=== PATIENT | male | born 1930 | race Caucasian/White ===

== ENCOUNTER 2017-09-04 18:09 | Inpatient (IN) | payer MEDICARE, OTHER ==
[~2017-09-04] VITALS: Ht 170.2 cm; Wt 69.0 kg
[2017-09-04 18:16] VITALS: BP 187/88; PULSE 65; RESP 18; TEMP 97.9; O2SAT 98
[2017-09-04] MEDS ORDERED: PROMETHAZINE INJ 25 MG/ML VIAL IM ONE (19:15)
[2017-09-04] MEDS ORDERED: MORPHINE SULFATE 8 MG/ML INJ IM ONE (19:15)
[2017-09-04] MEDS ORDERED: TETANUS/DIPHTHERIA TOXOID ADULT 0.5 ML VIAL IM ONE (19:15)
--- NOTE | 2017-09-04 19:17 | PD ---
HPI Chief Complaint: Fall Time Seen by Provider: 18:53 Travel History International Travel<30 days: No Contact w/Intl Traveler<30days: No Traveled to known affect area: No History of Present Illness HPI The patient is a 86-year-old male who presents to the emergency department after a mechanical fall. The states the patient fell while he was in the tub earlier tonight landing on his right mid back. 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 The patient takes soft liquids via the oropharyngeal route for hydration and nutritional support. The patient states he lost his balance and fell backwards, he is nonverbal secondary to tongue surgery, but is able to write on a pad that he carries with him. He complains of pain located in the mid right thoracic region is worse with movement, palpation, and inspiration. He denies any nausea or vomiting. He does note an abrasion to the right upper extremity but denies any difficulty using the right upper extremity. He cannot recall his last tetanus shot. He denies any loss of consciousness, headache, or neck pain. Symptoms are moderate , exacerbated after falling, and there are no current alleviating factors. [facility] Past Medical History Narrative Medical Oropharyngeal/throat cancer Past Surgical History Narrative Surgical oropharyngeal surgery for cancer, tracheostomy Social History Tobacco Use: Yes (history of) Allergies-Medications (Allergen,Severity, Reaction): Coded Allergies: No Known Allergies (Verified Allergy, Unknown, 09/04/17) Reported Meds & Prescriptions Reported Meds & Active Scripts Active Reported [Bladder Med] 1 Mg PO DAILY Levothyroxine (Levothyroxine Sodium) 50 Mcg Tab 50 Mcg PO DAILY Review of Systems Except as stated in HPI: all other systems reviewed are Neg HENT: No: Headaches, Neck Pain Cardiovascular: No: Chest Pain or Discomfort Respiratory: Positive: Pleuritic Pain, No: Shortness of Breath Gastrointestinal: No: Nausea, Vomiting, Abdominal Pain Musculoskeletal: Positive: Pain Skin: Positive Other (abrasion to the right upper extremity) Physical Exam Narrative GENERAL: Awake, alert, pleasant 86-year-old male who appears his stated age and is in no acute respiratory distress. The patient is wearing a mask and is nonverbal. SKIN: Focused skin assessment warm/dry. HEAD: Atraumatic. Normocephalic. EYES: Pupils equal and round. No scleral icterus. No injection or drainage. ENT: Patient is wearing a mask. NECK: Trachea midline. No JVD. No tenderness of the cervical vertebrae. CARDIOVASCULAR: Regular rate and rhythm. No murmur appreciated. RESPIRATORY: No accessory muscle use. Clear to auscultation. Breath sounds equal bilaterally. GASTROINTESTINAL: Abdomen soft, non-tender, nondistended. Back: No tenderness over the thoracic or lumbar vertebrae. Significant tenderness of the right thoracic posterior rib cage but no crepitus noted. MUSCULOSKELETAL: Abrasion noted over the right upper extremity which is a large skin tear measuring 8 cm x 6 cm. Patient is able fully flex and extend the right elbow as well as supinate and pronate the right forearm. He is able to abduct and extend the right upper extremity. NEUROLOGICAL: Awake and alert. No obvious cranial nerve deficits. Motor grossly within normal limits. Nonverbal. PSYCHIATRIC: Appropriate mood and affect; insight and judgment normal. Data Data Last Documented VS Vital Signs Date Time Temp Pulse Resp B/P (MAP) Pulse Ox O2 Delivery O2 Flow Rate FiO2 09/04/17 20:30 71 18 199/100 (133) 98 Room Air 09/04/17 18:[address] Thorax/ Chest Wo Iv Contras (09/04/17 ) Chest, Single Ap (09/04/17 ) Tetanus/Diphtheria Tox Adult (Tetanus/Di (09/04/17 19:15) Morphine Inj (Morphine Inj) (09/04/17 19:15) Promethazine Inj (Phenergan Inj) (09/04/17 19:15) Wound Care (09/04/17 19:11) Complete Blood Count With Diff (09/04/17 20:44) Basic Metabolic Panel (Bmp) (09/04/17 20:44) Ondansetron Inj (Zofran Inj) (09/04/17 20:45) Sodium Chlorid 0.9% 500 Ml Inj (Ns 500 M (09/04/17 20:45) Morphine Inj (Morphine Inj) (09/04/17 21:15) Labs Laboratory Tests Test 09/04/17 21:05 White Blood Count 10.1 TH/MM3 Red Blood Count 3.85 MIL/MM3 Hemoglobin 12.2 GM/DL Hematocrit 35.7 % Mean Corpuscular Volume 92.8 FL Mean Corpuscular Hemoglobin 31.7 PG Mean Corpuscular Hemoglobin Concent 34.2 % Red Cell Distribution Width 12.6 % Platelet Count 232 TH/MM3 Mean Platelet Volume 7.1 FL Neutrophils (%) (Auto) 88.4 % Lymphocytes (%) (Auto) 2.9 % Monocytes (%) (Auto) 6.0 % Eosinophils (%) (Auto) 1.4 % Basophils (%) (Auto) 1.3 % Neutrophils # (Auto) 9.0 TH/MM3 Lymphocytes # (Auto) 0.3 TH/MM3 Monocytes # (Auto) 0.6 TH/MM3 Eosinophils # (Auto) 0.1 TH/MM3 Basophils # (Auto) 0.1 TH/MM3 CBC Comment DIFF FINAL Differential Comment Blood Urea Nitrogen 26 MG/DL Creatinine 1.50 MG/DL Random Glucose 99 MG/DL Calcium Level 8.4 MG/DL Sodium Level 127 MEQ/L Potassium Level 3.9 MEQ/L Chloride Level 93 MEQ/L Carbon Dioxide Level 25.1 MEQ/L Anion Gap 9 MEQ/L Estimat Glomerular Filtration Rate 44 ML/MIN MDM Medical Decision Making Medical Screen Exam Complete: Yes Emergency Medical Condition: Yes Medical Record Reviewed: Yes Interpretation(s) Last Impressions Chest X-Ray 09/04/17 0000 Signed Impressions: Service Date/Time: Monday, September 04, 2017 19:18 - CONCLUSION: Multiple acute appearing right rib fractures. However, no pneumothorax is visualized. Serafin Urbina MD Chest CT 09/04/17 0000 Signed Impressions: Service Date/Time: Monday, September 04, 2017 20:01 - CONCLUSION: 1. There are right-sided rib fractures involving the seventh through 11th ribs and there is a nondisplaced fracture involving the right 10th and 11th right transverse process. No pneumothorax is visualized. 2. There is trace right pleural effusion with minimal right posterior chest wall soft tissue air. 3. 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 4. 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 Serafin Urbina MD Laboratory Tests Test 09/04/17 21:05 White Blood Count 10.1 TH/MM3 Red Blood Count 3.85 MIL/MM3 Hemoglobin 12.2 GM/DL Hematocrit 35.7 % Mean Corpuscular Volume 92.8 FL Mean Corpuscular Hemoglobin 31.7 PG Mean Corpuscular Hemoglobin Concent 34.2 % Red Cell Distribution Width 12.6 % Platelet Count 232 TH/MM3 Mean Platelet Volume 7.1 FL Neutrophils (%) (Auto) 88.4 % Lymphocytes (%) (Auto) 2.9 % Monocytes (%) (Auto) 6.0 % Eosinophils (%) (Auto) 1.4 % Basophils (%) (Auto) 1.3 % Neutrophils # (Auto) 9.0 TH/MM3 Lymphocytes # (Auto) 0.3 TH/MM3 Monocytes # (Auto) 0.6 TH/MM3 Eosinophils # (Auto) 0.1 TH/MM3 Basophils # (Auto) 0.1 TH/MM3 CBC Comment DIFF FINAL Differential Comment Blood Urea Nitrogen 26 MG/DL Random Glucose 99 MG/DL Calcium Level 8.4 MG/DL Sodium Level 127 MEQ/L Potassium Level 3.9 MEQ/L Chloride Level 93 MEQ/L Carbon Dioxide Level 25.1 MEQ/L Anion Gap 9 MEQ/L Differential Diagnosis Differential diagnosis includes thoracic fracture, rib fracture, pulmonary contusion, hemothorax, pneumothorax, mechanical fall, skin tear. Narrative Course A chest x-ray was obtained. CT of the thorax without contrast was ordered. The patient was administered morphine and Phenergan IM. The patient's tetanus shot was updated. The patient's wound was cleaned and a nonadherent dressing was applied. Chest x-ray reveals posterior right rib fractures. CT of the thorax reveals right sided rib fractures involving the seventh through 11th ribs and nondisplaced fracture involving the right 10th and 11th right transverse process, no pneumothorax is visualized. There is trace right pleural effusion with minimal right posterior chest wall soft air. The patient has multiple rib fractures, will need aggressive pulmonary toilet. The patient an IV established and was redosed with morphine for continuing pain. The on- call trauma surgeon, Dr. Morales, was paged at 9:24 PM for admission. Physician Communication Physician Communication The on-call trauma surgeon, Dr. Morales, was paged for admission. I discussed the patient with Dr. Morales who agrees with admission to the intensive care unit for pulmonary toilet. Diagnosis Primary Impression: Multiple rib fractures involving four or more ribs Additional Impression: Fracture of transverse process of thoracic vertebra Qualified Codes: S22.009A - Unspecified fracture of unspecified thoracic vertebra, initial encounter for closed fracture Admitting Information Admitting Physician Requests: Admit Condition: Stable Abhay Felix MD Sep 04, 2017 19:17
[2017-09-04] MEDS ORDERED: LEVO50TA4 PO (19:50)
[2017-09-04] MEDS ORDERED: BLADDER MED PO (19:50)
[2017-09-04 20:30] VITALS: BP 199/100; PULSE 71; RESP 18; O2SAT 98
--- NOTE | 2017-09-04 20:43 | RADRPT ---
EXAM DATE/TIME: 09/04/2017 19:18 [facility] COMPARISON: CT THORAX W/O CONTRAST, September 04, 2017, 20:01. INDICATIONS : Trauma, fall. MEDICAL HISTORY : Carcinoma, oropharyngeal. SURGICAL HISTORY : None. ENCOUNTER: Initial ACUITY: 1 day PAIN SCORE: Non-responsive. LOCATION: Bilateral chest FINDINGS: Single AP view of the chest demonstrates a normal-sized cardiac silhouette with calcification of the aorta. There is minimal blunting of the right costophrenic angle. No pneumothorax is visualized. Ther e are multiple right rib fractures that appear acute. CONCLUSION: Multiple acute appearing right rib fractures. However, no pneumothorax is visualized. Serafin Urbina MD on September 04, 2017 at 20:39 Board Certified Radiologist. This report was verified electronically.
[2017-09-04] MEDS ORDERED: SODIUM CHLORID 0.9% 500 ML INJ 500 ML IV ONE (20:45)
[2017-09-04] MEDS ORDERED: MORPHINE SULFATE 4 MG/ML INJ IV PUSH ONE (20:45)
[2017-09-04] MEDS ORDERED: ONDANSETRON HCL 4 MG/2 ML VIAL IV PUSH ONE (20:45)
--- NOTE | 2017-09-04 21:12 | RADRPT ---
EXAM DATE/TIME: 09/04/2017 20:01 [facility] COMPARISON: No previous studies available for comparison. INDICATIONS : Trauma. Fall. Upper back pain. RADIATION DOSE: 6.94 CTDIvol (mGy) MEDICAL HISTORY : Carcinoma, oral cavity. SURGICAL HISTORY : Tracheostomy. ENCOUNTER: Initial ACUITY: 1 day PAIN SCALE: 10/10 LOCATION: Bilateral upper chest posterior TECHNIQUE: Volumetric scanning of the chest was performed. Using automated exposure control and adjustment of t he mA and/or kV according to patient size, radiation dose was kept as low as reasonably achievable to obtain optimal diagnostic quality images. DICOM format image data is available electronically for r eview and comparison. Follow-up recommendations for detected pulmonary nodules are based at a minimum on nodule size and pa tient risk factors according to Fleischner Society Guidelines. FINDINGS: LUNGS: There has been prior surgery in the right upper lung zone with staple line visualized. A linear opaci ty at the right lung apex likely represents scar or chronic atelectasis. There is mild dependent atel ectasis in the right lower lobe. No pneumothorax is visualized. PLEURAE: There is small right pleural effusion. MEDIASTINUM: There is severe coronary artery calcification with aneurysmal ascending and descending thoracic aorta measuring up to 4.1 cm and 3.2 cm, respectively. An enlarged precarinal lymph node measures 11 mm in short axis diameter. AXILLAE: Within normal limits. No lymphadenopathy. MUSCULOSKELETAL: There are degenerative changes of the thoracic spine. There are minimally displaced fractures involvi ng the right seventh through 11th ribs posteriorly and posterior laterally. Nondisplaced right T10 an d T11 transverse process fractures are identified. There is a small amount of soft tissue air adjacen t to the fractures. MISCELLANEOUS: Ovoid rim calcified vascular structure abutting the celiac trunk measures 17 mm and may represent an aneurysm. Tracheostomy is present. Small hiatal hernia is identified. CONCLUSION: 1. There are right-sided rib fractures involving the seventh through 11th ribs and there is a nondisp laced fracture involving the right 10th and 11th right transverse process. No pneumothorax is visuali zed. 2. There is trace right pleural effusion with minimal right posterior chest wall soft tissue air. 3. 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 4. 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 Serafin Urbina MD on September 04, 2017 at 21:03 Board Certified Radiologist. This report was verified electronically.
[2017-09-04 21:13] LABS: BASOPHIL # 0.1 TH/MM3 (0-0.2); BASOPHIL % 1.3 % (0.0-2.0); EOSINOPHIL # 0.1 TH/MM3 (0-0.4); EOSINOPHIL % 1.4 % (0.0-4.0); HEMATOCRIT 35.7 % (39.0-51.0); LYMPH % 2.9 % (9.0-44.0); LYMPHOCYTE # 0.3 TH/MM3 (1.0-4.8); MEAN CELL VOLUME 92.8 FL (80.0-100.0); MEAN CORPUSCULAR HEMOGLOBIN 31.7 PG (27.0-34.0); MEAN CORPUSCULAR HGB CONC 34.2 % (32.0-36.0); NEUT % 88.4 % (16.0-70.0); PLATELET COUNT 232 TH/MM3 (150-450); RED BLOOD COUNT 3.85 MIL/MM3 (4.50-5.90); RED CELL DISTRIBUTION WIDTH 12.6 % (11.6-17.2); WHITE BLOOD COUNT 10.1 TH/MM3 (4.0-11.0)
[2017-09-04 21:14] LABS: HEMO FLAGS DIFF FINAL
[2017-09-04 21:15] VITALS: BP 160/91; PULSE 81; RESP 19; O2SAT 95
[2017-09-04] MEDS ORDERED: MORPHINE SULFATE 8 MG/ML INJ IV PUSH ONE (21:15)
[2017-09-04 21:21] LABS: POTASSIUM 3.9 MEQ/L (3.5-5.1)
[2017-09-04 21:23] LABS: BICARBONATE 25.1 MEQ/L (21.0-32.0)
[2017-09-04 21:50] VITALS: BP 142/90; PULSE 80; RESP 18; O2SAT 94
[2017-09-04] MEDS ORDERED: ONDANSETRON HCL 4 MG/2 ML VIAL IV PUSH PRN (22:15)
[2017-09-04 23:00] VITALS: BP 151/88; PULSE 88; RESP 20; TEMP 98.5; O2SAT 94
[2017-09-04] MEDS: NS + KCL 20 MEQ INJ 1,000 ML IV SCH (23:28)
[2017-09-05] VITALS (12 sets, daily range): BP systolic 116–171; BP diastolic 58–89; PULSE 60–92; RESP 10–17; TEMP 97.8–98.9; O2SAT 88–98
[2017-09-05] MEDS: MORPHINE SULFATE 8 MG/ML INJ IV PUSH PRN ×3 (00:39→12:46)
--- NOTE | 2017-09-05 05:59 | RADRPT ---
EXAM DATE/TIME: 09/05/2017 05:19 [facility] COMPARISON: CHEST SINGLE AP, September 04, 2017, 19:18. INDICATIONS : Short of breath. MEDICAL HISTORY : Carcinoma, oropharyngeal. SURGICAL HISTORY : None. ENCOUNTER: Subsequent ACUITY: 2 days PAIN SCORE: Non-responsive. LOCATION: Bilateral chest FINDINGS: The cardiac silhouette is enlarged in transverse diameter. The aortic knob is prominent with tortuosi ty of the descending thoracic aorta. There is interstitial disease bilaterally unchanged from prior s tudy. CONCLUSION: 1. There is no evidence of pneumothorax. 2. Stable interstitial disease Devonte Rosenberg MD on September 05, 2017 at 5:56 Board Certified Radiologist. This report was verified electronically.
[2017-09-05] MEDS ORDERED: SODIUM CHLORIDE 0.9% FLUSH 10 ML FLUSH IV FLUSH PRN (07:15)
[2017-09-05] MEDS ORDERED: CHLORHEXIDINE GLUCONATE 2 % 1 PACK (2 CLOTHS) TOP PRN (07:15)
[2017-09-05] MEDS ORDERED: MISCELLANEOUS NURSING INFORMATION XX SCH (07:15)
[2017-09-05] MEDS: ACETAMINOPHEN/HYDROcodone 325 MG/5 MG TAB PO PRN (07:50)
[2017-09-05] MEDS ORDERED: PANTOPRAZOLE SODIUM 40 MG VIAL IVP SCH (09:00)
[2017-09-05] MEDS: LIDOCAINE HCL 5% PATCH T-DERMAL SCH (09:00)
[2017-09-05] MEDS: DOCUSATE SODIUM 100 MG CAP PO SCH ×2 (09:06→21:47)
[2017-09-05] MEDS: MAGNESIUM HYDROXIDE SUSP 30 ML CUP PO SCH ×2 (09:06→21:48)
[2017-09-05] MEDS: METHOCARBAMOL 500 MG TAB PO SCH ×3 (09:06→21:47)
[2017-09-05] MEDS: HEPARIN SODIUM - SQ 10,000 UNITS/ML VIAL SQ SCH ×2 (09:06→17:27)
[2017-09-05] MEDS: RESP: ALBUTEROL 2.5 MG/IPRATROPIUM 0.5 MG NEB (SCH) NEB ×4 (10:01→21:24)
[2017-09-05] MEDS: LEVOTHYROXINE SODIUM 50 MCG TAB PO SCH (10:27)
[2017-09-05] MEDS: NS + KCL 20 MEQ INJ 1,000 ML IV SCH (10:28)
--- NOTE | 2017-09-05 11:59 | MH ---
cc: CHICHI ACOSTA MD DATE OF ADMISSION: 09/04/2017 CHIEF COMPLAINT Fall from standing. HISTORY OF PRESENT ILLNESS The patient is an 86-year-old male who presents initially to the emergency department status post fall. The patient came to [place], was evaluated, noted to have fallen, hitting his right back and right arm. He states he did not get dizzy or have any loss of consciousness but slipped and fell by the bathtub. He was hemodynamically stable otherwise, further workup including CT scans showing right 7 through 11 rib fractures and right spinous process fractures. He was transferred to [place] for further evaluation and management. Trauma Surgery was consulted. The patient is noted to have history of the oropharyngeal cancer for which she underwent chemoradiation and currently has a surgical mask in place. He further denies any previous history of falls and is relatively healthy otherwise. PAST MEDICAL HISTORY Oropharyngeal/throat cancer. PAST SURGICAL HISTORY Tracheostomy/oropharyngeal surgery for cancer. Thyroidectomy. SOCIAL HISTORY Denies current smoking, EtOH or IVDA but history of smoking. ALLERGIES No known drug allergies. MEDICATIONS See EMR. FAMILY HISTORY Denies diabetes or hypertension. REVIEW OF SYSTEMS GENERAL: Denies eye pain, ear pain. NECK: Denies swelling or pain. LUNGS: Denies cough or wheeze. Complains of right-sided chest pain. HEART: Denies palpitation or chest pressure. GI: Denies nausea or vomiting. : Denies dysuria, hematuria. MUSCULOSKELETAL: Complains of right extremity pain. SKIN: Complains of right extremity abrasions, otherwise no masses. PSYCH: Appropriate mood and affect. NEUROLOGIC: Denies numbness or tingling. PHYSICAL EXAMINATION GENERAL: The patient is in no acute distress. VITAL SIGNS: Temperature 97.9, pulse 71, respirations 18, blood pressure 185/89, saturation 88% on 2 liters nasal cannula. HEENT: Pupils equal, round reactive. Normocephalic, atraumatic. Surgical mask in place. NECK: Supple. Trachea midline and healed surgical incisions. LUNGS: Bilateral expansion. Clear. Positive tenderness to palpation right side of chest. No significant bruising. ABDOMEN: Soft, nontender, nondistended. PELVIS: Stable. EXTREMITIES: Warm, well-perfused. Right upper extremity dressing in place. Skin tears. : Within normal limits. BACK: No step-offs, nontender. INTEGUMENT: As above. NEUROLOGIC: 5/5 motor in all extremities. GCS of 15. LABORATORY AND DIAGNOSTIC DATA WBC 10, hemoglobin 12.2, hematocrit 35.7, platelets 232. Sodium 127, potassium 3.9, chloride 93, BUN 26, creatinine 1.5, calcium 8.4. IMAGING REVIEWED BY MYSELF CT chest showing multiple rib fractures, fractures 7 through 11 on the right. No evidence of pneumothorax. Minimal soft tissue air. Transverse process fractures on the right, minimally displaced. ASSESSMENT The patient is an 86-year-old male who presents with a history of oropharyngeal cancer status post slip and fall from standing, noted to have right-sided rib fractures and right extremity abrasion. PLAN 1. After full clinical, radiologic and laboratory workup, the patient with above-named issues. The patient has had several rib fractures 7 to 11 on the right. At this point discussed with the patient needs appropriate pain control, incentive spirometry, pulmonary toilet. We will recheck a chest x-ray in the morning and supply oxygen as needed. 2. The patient does have some hypertension at this time. We will continue to assist with pain control likely etiology. We will also add Vasotec for improvement in this. 3. The patient has right upper extremity skin abrasion for which he will get wound care including Xeroform and bacitracin. We will keep the patient in the ICU for 24 hours and transition and transfer to the floor when bed is available. Discussed with the patient in detail and at bedside. Also, in regards to transverse process fractures, discussed no current operative intervention as these are small and very lateral. The patient has no signs of any kind of neurologic deficits. [place] and discussed with the patient short hospital stay and would assist him in transferring back up to [place] were he is from after his acute injuries have been appropriately treated and addressed. The patient and are in understanding of this. MD YEMI Yoder/BELLO /11:34 AM /11:50 AM
--- NOTE | 2017-09-05 14:30 | HHI.CCPN ---
Subjective Brief History The patient is an 86-year-old male who presents initially to the emergency department status post fall. The patient came to [place], was evaluated, noted to have fallen, hitting his right back and right arm. He states he did not get dizzy or have any loss of consciousness but slipped and fell by the bathtub. He was hemodynamically stable otherwise, further workup including CT scans showing right 7 through 11 rib fractures and right spinous process fractures. He was transferred to [place] for further evaluation and management. Patient now admitted to ICU trauma service for further care Final injuries Right pulmonary contusion 7 through 11th right serial rib fracture Extensive medical history of lung carcinoma and patient underwent frontal glossectomy in the recent past 24 Hour Review/Hospital Course Patient's been stable overnight He is awake alert and oriented Pain is under control with appropriate pain management protocols Bilateral breath sounds decreased over the right side due to splinting Tender over the right chest in face of serial rip fractures Objective Vital Signs Date Time Temp Pulse Resp B/P (MAP) Pulse Ox O2 Delivery O2 Flow Rate FiO2 09/05/17 14:00 92 09/05/17 12:00 95 Nasal Cannula 2.00 09/05/17 12:00 97.8 17 121/77 (92) Intake and Output 09/05/17 09/05/17 09/06/17 08:00 16:00 00:00 Output Total 400 ml Balance -400 ml Result Diagram: 09/04/17210409/04/172104 Imaging Last 24 hours Impressions Chest X-Ray 09/05/17 0600 Signed Impressions: Service Date/Time: Tuesday, September 05, 2017 05:19 - CONCLUSION: 1. There is no evidence of pneumothorax. 2. Stable interstitial disease Devonte Rosenberg MD Exam ARCHIVIST POLITICAL HISTORY Awake alert oriented [employer] Hemodynamic/Cardiac Hemodynamically patient remains stable Pulmonary/Respiratory Bilateral breath sounds splinting over the right side consistent with pulmonary contusion and serial rip fractures on the right Abdomen/GI Nutrition Abdomen soft diet tolerated Renal/I&O Good urine output preserved renal function with slight elevation of BUN and creatinine and some degree of hyponatremia I'm not sure he patient has chronic hyponatremia at home but we will corrected this It should be noted that patient's with hyponatremia regardless the reason for admission to the hospital half twice the mortality of those that are normonatremic Metabolic/Acid-Base Metabolically stable Assessment and Plan Attestation Patient stable doing well at this time We will keep another day in the ICU because chest injury sequela may get worse before they get better Critical care time 35 minutes Parish Cheema MD Sep 05, 2017 14:30
[2017-09-05] MEDS: KETOROLAC TROMETHAMINE 30 MG/ML (IVP) VIAL IVP PRN (17:28)
[2017-09-05] MEDS: REMOVE OLD LIDOCAINE PATCH T-DERMAL SCH (21:00)
[2017-09-06] VITALS (13 sets, daily range): BP systolic 96–161; BP diastolic 54–74; PULSE 65–103; RESP 16–25; TEMP 97.6–98.9; O2SAT 92–98
[2017-09-06] MEDS: HEPARIN SODIUM - SQ 10,000 UNITS/ML VIAL SQ SCH ×3 (00:10→17:03)
[2017-09-06] MEDS: MORPHINE SULFATE 8 MG/ML INJ IV PUSH PRN (01:01)
[2017-09-06] MEDS: ENALAPRILAT 1.25 MG/ML VIAL IV PUSH PRN (01:54)
[2017-09-06] MEDS: CHLORHEXIDINE GLUCONATE 2 % 1 PACK (2 CLOTHS) TOP SCH (04:00)
[2017-09-06] MEDS: NS + KCL 20 MEQ INJ 1,000 ML IV SCH (04:26)
[2017-09-06 04:57] LABS: AUTOMATED NEUTROPHIL # 6.2 TH/MM3 (1.8-7.7); BASOPHIL % 0.2 % (0.0-2.0); EOSINOPHIL # 0.1 TH/MM3 (0-0.4); EOSINOPHIL % 1.6 % (0.0-4.0); HEMATOCRIT 33.1 % (39.0-51.0); HEMO FLAGS DIFF FINAL; LYMPHOCYTE # 0.1 TH/MM3 (1.0-4.8); MEAN CELL VOLUME 94.2 FL (80.0-100.0); MEAN CORPUSCULAR HEMOGLOBIN 32.3 PG (27.0-34.0); MEAN CORPUSCULAR HGB CONC 34.3 % (32.0-36.0); MONO % 3.8 % (0.0-8.0); NEUT % 92.4 % (16.0-70.0); PLATELET COUNT 189 TH/MM3 (150-450); RED BLOOD COUNT 3.52 MIL/MM3 (4.50-5.90); RED CELL DISTRIBUTION WIDTH 13.3 % (11.6-17.2); WHITE BLOOD COUNT 6.7 TH/MM3 (4.0-11.0)
[2017-09-06] MEDS: METHOCARBAMOL 500 MG TAB PO SCH ×3 (05:01→21:09)
[2017-09-06] MEDS: LEVOTHYROXINE SODIUM 50 MCG TAB PO SCH (05:01)
[2017-09-06 05:27] LABS: BICARBONATE 23.6 MEQ/L (21.0-32.0); POTASSIUM 4.7 MEQ/L (3.5-5.1)
--- NOTE | 2017-09-06 06:06 | RADRPT ---
EXAM DATE/TIME: 09/06/2017 04:40 [facility] COMPARISON: CHEST SINGLE AP, September 05, 2017, 5:19. INDICATIONS : Shortness of breath. MEDICAL HISTORY : Carcinoma, oropharynx SURGICAL HISTORY : None. ENCOUNTER: Subsequent ACUITY: 2 days PAIN SCORE: Non-responsive. LOCATION: Bilateral chest FINDINGS: The cardiac silhouette is enlarged in transverse diameter. The aortic knob is prominent with tortuosi ty of the descending thoracic aorta. There is prominence of the central pulmonary vasculature with in distinct vascular margins compatible with vascular congestion but no evidence of overt failure. CONCLUSION: 1. Cardiomegaly and findings of vascular congestion without overt failure. There has been no signific ant change when compared to the prior exam. Devonte Rosenberg MD on September 06, 2017 at 6:04 Board Certified Radiologist. This report was verified electronically.
[2017-09-06] MEDS ORDERED: PILL SPLITTER OTHER PRN (07:30)
[2017-09-06] MEDS: RESP: ALBUTEROL 2.5 MG/IPRATROPIUM 0.5 MG NEB (SCH) NEB ×4 (08:31→20:57)
--- NOTE | 2017-09-06 09:27 | HHI.FF ---
Face to Face Verification Diagnosis: (1) Fracture of transverse process of thoracic vertebra (2) Multiple rib fractures involving four or more ribs Physical Therapy Order: Evaluate and Treat, Improve ambulation, Strength and gait training Home Health Nursing Order: Nursing assessment with vital signs I have seen patient Holger Clifford, on 09/06/17. My clinical findings support the need for the requested home health care services because: Limited ability to care for self High risk of falls I certify that my clinical findings support that this patient is homebound because: Unsteady gait/balance Dana Lara Sep 06, 2017 09:27
[2017-09-06] MEDS: LACTULOSE SYRUP 20 GM/30 ML CUP PO SCH (09:49)
[2017-09-06] MEDS: MAGNESIUM HYDROXIDE SUSP 30 ML CUP PO SCH ×2 (09:50→21:08)
[2017-09-06] MEDS: FAMOTIDINE 20 MG TAB PO SCH ×2 (09:50→21:09)
[2017-09-06] MEDS: DOCUSATE SODIUM 100 MG CAP PO SCH ×2 (09:50→21:10)
[2017-09-06] MEDS: LIDOCAINE HCL 5% PATCH T-DERMAL SCH (09:50)
[2017-09-06] MEDS: ACETAMINOPHEN/HYDROcodone 325 MG/5 MG TAB PO PRN (09:58)
--- NOTE | 2017-09-06 10:19 | HHI.CCPN ---
Subjective Brief History The patient is an 86-year-old male who presents initially to the emergency department status post fall. The patient came to [place], was evaluated, noted to have fallen, hitting his right back and right arm. He states he did not get dizzy or have any loss of consciousness but slipped and fell by the bathtub. He was hemodynamically stable otherwise, further workup including CT scans showing right 7 through 11 rib fractures and right spinous process fractures. He was transferred to [place] for further evaluation and management. Patient now admitted to ICU trauma service for further care Final injuries Right pulmonary contusion 7 through 11th right serial rib fracture Extensive medical history of lung carcinoma and patient underwent frontal glossectomy in the recent past 24 Hour Review/Hospital Course Patient's been stable overnight He is awake alert and oriented Pain is under control with appropriate pain management protocols Bilateral breath sounds decreased over the right side due to splinting Tender over the right chest in face of serial rib fractures 09/06/17 Patient doing better today Awake alert and oriented and not confused despite the age and medications Improved the breathing over the both lung [place] but decreased breath sounds on the right Chest x-ray reveals some haziness on the right side emboli repeat the CT scan to make sure the patient doesn't have a large developing effusion i.e. hemothorax which would not be surprising Pain management had to be adjusted somewhat for patient is not reacting to morphine well Plan Transferred to floor CT of the chest and if there is a large effusion patient will need a drained with a chest tube and if not then he may be able to go home tomorrow Aggressive physical therapy Objective Vital Signs Date Time Temp Pulse Resp B/P (MAP) Pulse Ox O2 Delivery O2 Flow Rate FiO2 09/06/17 08:37 97 Nasal Cannula 2.00 09/06/17 08:00 103 09/06/17 08:00 16 96/54 (68) 09/06/17 04:00 98.2 Intake and Output 09/06/17 09/06/17 09/07/17 08:00 16:00 00:00 Intake Total 1360 ml Output Total 700 ml Balance 660 ml Result Diagram: 09/06/1742609/06/17426 Imaging Last 24 hours Impressions Chest X-Ray 09/06/17 0600 Signed Impressions: Service Date/Time: Wednesday, September 06, 2017 04:40 - CONCLUSION: 1. Cardiomegaly and findings of vascular congestion without overt failure. There has been no significant change when compared to the prior exam. 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
[2017-09-06] MEDS: fentaNYL 25 MCG/HR PATCH T-DERMAL SCH (10:49)
[2017-09-06] MEDS ORDERED: PROCHLORPERAZINE MALEATE 5 MG TAB PO PRN (11:00)
--- NOTE | 2017-09-06 16:01 | RADRPT ---
EXAM DATE/TIME: 09/06/2017 15:37 [facility] COMPARISON: CT THORAX W/O CONTRAST, September 04, 2017, 20:01. INDICATIONS : Evalutate pleural effusion RADIATION DOSE: 8.73 CTDIvol (mGy) MEDICAL HISTORY : Carcinoma, tongue. SURGICAL HISTORY : Orophargeal for cancer ENCOUNTER: Initial ACUITY: 2 days PAIN SCALE: 4/10 LOCATION: chest TECHNIQUE: Volumetric scanning of the chest was performed. Using automated exposure control and adjustment of t he mA and/or kV according to patient size, radiation dose was kept as low as reasonably achievable to obtain optimal diagnostic quality images. DICOM format image data is available electronically for r eview and comparison. Follow-up recommendations for detected pulmonary nodules are based at a minimum on nodule size and pa tient risk factors according to Fleischner Society Guidelines. FINDINGS: There's the small right pleural effusion. The left lung is clear. Minimal bronchial thickening is present in the right lung. There is no axillary adenopathy. Minimal nonspecific mediastinal adenopathy is present. Marked coronary calcifications are noted. Trace pericardial effusion is evident. The portion of the liver and spleen identified are free of focal defects. Extensive vascular calcifi cations are noted including origin of the celiac and left renal artery Splenic granulomas are evident. CONCLUSION: Small pleural effusion on the right occupying less than one quarter right hemithorax with minimal per ipheral changes right base. There is mild progression from 09/04/17. Marked coronary calcifications. George Gray MD FACR on September 06, 2017 at 15:56 Board Certified Radiologist. This report was verified electronically.
[2017-09-06] MEDS: KETOROLAC TROMETHAMINE 30 MG/ML (IVP) VIAL IVP PRN (17:47)
[2017-09-06] MEDS: REMOVE OLD LIDOCAINE PATCH T-DERMAL SCH (21:00)
[2017-09-07] VITALS (14 sets, daily range): BP systolic 105–137; BP diastolic 53–67; PULSE 60–98; RESP 9–23; TEMP 96.4–97.8; O2SAT 93–98
[2017-09-07] MEDS: HEPARIN SODIUM - SQ 10,000 UNITS/ML VIAL SQ SCH ×3 (01:26→17:30)
[2017-09-07] MEDS: CHLORHEXIDINE GLUCONATE 2 % 1 PACK (2 CLOTHS) TOP SCH (04:00)
[2017-09-07] MEDS: LEVOTHYROXINE SODIUM 50 MCG TAB PO SCH (05:36)
[2017-09-07] MEDS: METHOCARBAMOL 500 MG TAB PO SCH ×3 (05:36→20:59)
[2017-09-07] MEDS: KETOROLAC TROMETHAMINE 30 MG/ML (IVP) VIAL IVP PRN (05:45)
[2017-09-07 06:10] LABS: AUTOMATED NEUTROPHIL # 2.5 TH/MM3 (1.8-7.7); BASOPHIL % 0.5 % (0.0-2.0); EOSINOPHIL # 0.3 TH/MM3 (0-0.4); HEMO FLAGS DIFF FINAL; LYMPH % 7.5 % (9.0-44.0); LYMPHOCYTE # 0.3 TH/MM3 (1.0-4.8); MEAN CELL VOLUME 94.2 FL (80.0-100.0); MEAN CORPUSCULAR HEMOGLOBIN 32.4 PG (27.0-34.0); MEAN CORPUSCULAR HGB CONC 34.4 % (32.0-36.0); MONO % 8.9 % (0.0-8.0); NEUT % 73.1 % (16.0-70.0); PLATELET COUNT 158 TH/MM3 (150-450); RED BLOOD COUNT 2.86 MIL/MM3 (4.50-5.90); RED CELL DISTRIBUTION WIDTH 13.5 % (11.6-17.2); WHITE BLOOD COUNT 3.5 TH/MM3 (4.0-11.0)
--- NOTE | 2017-09-07 06:39 | RADRPT ---
EXAM DATE/TIME: 09/07/2017 05:26 [facility] COMPARISON: CHEST SINGLE AP, September 06, 2017, 4:40. INDICATIONS : Short of breath. MEDICAL HISTORY : Carcinoma, tongue. SURGICAL HISTORY : Orophargeal for cancer ENCOUNTER: Initial ACUITY: 3 days PAIN SCORE: 0/10 LOCATION: Bilateral chest FINDINGS: The cardiac silhouette is enlarged in transverse diameter. The aortic knob is prominent with tortuosi ty of the descending thoracic aorta. There is left lower lobe atelectasis versus pneumonia. There is patchy alveolar disease bilaterally compatible with edema or pneumonia. CONCLUSION: 1. Patchy alveolar disease characteristic of edema or pneumonia. There has been no significant mathias e when compared to the prior exam. Devonte Rosenberg MD on September 07, 2017 at 6:37 Board Certified Radiologist. This report was verified electronically.
[2017-09-07 07:07] LABS: ALKALINE PHOSPHATASE 62 U/L (45-117); ALT (GPT) 15 U/L (12-78); ANION GAP 4 MEQ/L (5-15); AST (GOT) 33 U/L (15-37); BICARBONATE 27.3 MEQ/L (21.0-32.0); BLOOD UREA NITROGEN 32 MG/DL (7-18); CHLORIDE 99 MEQ/L (98-107); GLOMERULAR FILTRATION RATE 40 ML/MIN (>89); POTASSIUM 5.7 MEQ/L (3.5-5.1); SODIUM (NA) 130 MEQ/L (136-145); TOTAL BILIRUBIN ADULT 0.5 MG/DL (0.2-1.0)
[2017-09-07] MEDS: DOCUSATE SODIUM 100 MG CAP PO SCH (08:24)
[2017-09-07] MEDS: FAMOTIDINE 20 MG TAB PO SCH ×2 (08:24→20:59)
[2017-09-07] MEDS: MAGNESIUM HYDROXIDE SUSP 30 ML CUP PO SCH (08:25)
[2017-09-07] MEDS: LACTULOSE SYRUP 20 GM/30 ML CUP PO SCH (08:25)
[2017-09-07] MEDS: LIDOCAINE HCL 5% PATCH T-DERMAL SCH (08:35)
[2017-09-07] MEDS: RESP: ALBUTEROL 2.5 MG/IPRATROPIUM 0.5 MG NEB (SCH) NEB ×4 (09:21→19:38)
--- NOTE | 2017-09-07 11:32 | HHI.CCPN ---
Subjective Brief History The patient is an 86-year-old male who presents initially to the emergency department status post fall. The patient came to [place], was evaluated, noted to have fallen, hitting his right back and right arm. He states he did not get dizzy or have any loss of consciousness but slipped and fell by the bathtub. He was hemodynamically stable otherwise, further workup including CT scans showing right 7 through 11 rib fractures and right spinous process fractures. He was transferred to [place] for further evaluation and management. Patient now admitted to ICU trauma service for further care Final injuries Right pulmonary contusion 7 through 11th right serial rib fracture Extensive medical history of lung carcinoma and patient underwent frontal glossectomy in the recent past 24 Hour Review/Hospital Course Patient's been stable overnight He is awake alert and oriented Pain is under control with appropriate pain management protocols Bilateral breath sounds decreased over the right side due to splinting Tender over the right chest in face of serial rib fractures 09/06/17 Patient doing better today Awake alert and oriented and not confused despite the age and medications Improved the breathing over the both lung [place] but decreased breath sounds on the right Chest x-ray reveals some haziness on the right side emboli repeat the CT scan to make sure the patient doesn't have a large developing effusion i.e. hemothorax which would not be surprising Pain management had to be adjusted somewhat for patient is not reacting to morphine well Plan Transferred to floor CT of the chest and if there is a large effusion patient will need a drained with a chest tube and if not then he may be able to go home tomorrow Aggressive physical therapy 09/07/17 Patient is awake alert and oriented and pain is now controlled very well with fentanyl patch and by mouth medication CT of the chest revealed small to moderate sized right hemothorax yesterday and today's chest x-ray reveals more density in the right side. Combined with decreasing hemoglobin the more prominent density of the right chest is consistent with an enlarging hemothorax In a patient of this size this wouldn't be unusual and is commonly venous bleeding of intercostal vessels Will place small chest tube at the bedside Objective Vital Signs Date Time Temp Pulse Resp B/P (MAP) Pulse Ox O2 Delivery O2 Flow Rate FiO2 09/07/17 10:00 74 09/07/17 09:21 94 Nasal Cannula 2.00 09/07/17 08:00 97.8 23 127/61 (83) Intake and Output 09/07/17 09/07/17 09/08/17 08:00 16:00 00:00 Intake Total 400 ml Balance 400 ml Result Diagram: 09/07/1745009/07/17 045 Imaging Last 24 hours Impressions Chest X-Ray 09/07/17 0600 Signed Impressions: Service Date/Time: August 05:26 - CONCLUSION: 1. Patchy alveolar disease characteristic of edema or pneumonia. There has been no significant change when compared to the prior exam. 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
[2017-09-07] MEDS ORDERED: LIDOCAINE HCL 1% 50 ML VIAL ONE (12:54)
[2017-09-07] MEDS: ACETAMINOPHEN/HYDROcodone 325 MG/5 MG TAB PO PRN ×2 (14:44→20:58)
--- NOTE | 2017-09-07 14:46 | RADRPT ---
EXAM DATE/TIME: 09/07/2017 13:45 [facility] COMPARISON: CHEST SINGLE AP, September 07, 2017, 5:26. INDICATIONS : Chest tube placement MEDICAL HISTORY : cancer of the tongue SURGICAL HISTORY : orapharageal for cancer ENCOUNTER: Initial ACUITY: 3 days PAIN SCORE: 8/10 LOCATION: Bilateral chest FINDINGS: A single view of the chest demonstrates the lungs to be symmetrically aerated with a right basilar ef fusion/consolidation. Interval placement of a surgical thoracostomy tube projecting over the right lo wer chest. There is some improvement in the increased density identified over the right hemithorax wh ich may have represented a posterior layering effusion. Atelectatic changes in the left base. Left john ng is otherwise clear. There appears to be dense calcification of the mitral valve annulus. Multiple right-sided rib fractures CONCLUSION: 1. Multiple right-sided rib fractures with associated right-sided effusion/atelectasis possibly repre senting a small hemothorax. 2. Density in the right hemithorax does show some interval improvement since the placement of the rig ht sided surgical chest tube which projects over the right lower chest suggesting reduction in the si ze of the previously noted effusion. No pneumothorax. 3. Minimal atelectatic changes above the left hemidiaphragm. Left lung is otherwise clear. 4. Dense calcification of what appears to be the mitral valve annulus. Kenneth Riley MD on September 07, 2017 at 14:39 Board Certified Radiologist. This report was verified electronically.
[2017-09-07] MEDS ORDERED: chlorproMAZINE HCL 25 MG TAB PO PRN (18:45)
[2017-09-07] MEDS ORDERED: ENOXAPARIN SODIUM 30 MG/0.3 ML SYRINGE SQ SCH (20:00)
[2017-09-07] MEDS: DOCUSATE SODIUM 50 MG/SENNA 8.6 MG TAB PO SCH (21:00)
[2017-09-07] MEDS: REMOVE OLD LIDOCAINE PATCH T-DERMAL SCH (21:00)
[2017-09-08] VITALS (13 sets, daily range): BP systolic 138–168; BP diastolic 69–84; PULSE 61–88; RESP 15–22; TEMP 96.9–98.1; O2SAT 92–99
[2017-09-08] MEDS: HEPARIN SODIUM - SQ 10,000 UNITS/ML VIAL SQ SCH ×3 (00:25→17:38)
[2017-09-08] MEDS: ENALAPRILAT 1.25 MG/ML VIAL IV PUSH PRN (03:28)
[2017-09-08] MEDS: ACETAMINOPHEN/HYDROcodone 325 MG/5 MG TAB PO PRN (03:28)
[2017-09-08] MEDS: CHLORHEXIDINE GLUCONATE 2 % 1 PACK (2 CLOTHS) TOP SCH (03:44)
[2017-09-08] MEDS: MORPHINE SULFATE 8 MG/ML INJ IV PUSH PRN (04:14)
[2017-09-08 04:37] LABS: AUTOMATED NEUTROPHIL # 3.5 TH/MM3 (1.8-7.7); BASOPHIL % 0.3 % (0.0-2.0); EOSINOPHIL # 0.3 TH/MM3 (0-0.4); EOSINOPHIL % 7.4 % (0.0-4.0); HEMATOCRIT 30.6 % (39.0-51.0); HEMO FLAGS DIFF FINAL; LYMPH % 4.2 % (9.0-44.0); LYMPHOCYTE # 0.2 TH/MM3 (1.0-4.8); MEAN CELL VOLUME 94.5 FL (80.0-100.0); MEAN CORPUSCULAR HEMOGLOBIN 32.4 PG (27.0-34.0); MEAN CORPUSCULAR HGB CONC 34.2 % (32.0-36.0); MONO % 8.9 % (0.0-8.0); NEUT % 79.2 % (16.0-70.0); PLATELET COUNT 206 TH/MM3 (150-450); RED BLOOD COUNT 3.24 MIL/MM3 (4.50-5.90); RED CELL DISTRIBUTION WIDTH 13.6 % (11.6-17.2); WHITE BLOOD COUNT 4.5 TH/MM3 (4.0-11.0)
--- NOTE | 2017-09-08 04:45 | RADRPT ---
EXAM DATE/TIME: 09/08/2017 04:00 [facility] COMPARISON: CHEST SINGLE AP, September 07, 2017, 13:45. INDICATIONS : Hemothorax MEDICAL HISTORY : cancer of the tongue SURGICAL HISTORY : orapharageal for cancer ENCOUNTER: Subsequent ACUITY: 4 - 6 days PAIN SCORE: 9/10 LOCATION: Right chest FINDINGS: The cardiac silhouette is enlarged in transverse diameter. A right chest tube is in place. There is n o evidence of pneumothorax. There is decreasing right-sided effusionThe left lung is free of acute pa renchymal opacity. Multiple right rib fractures are present CONCLUSION: 1. Bibasilar atelectasis 2. Decreasing right effusion Devonte Rosenberg MD on September 08, 2017 at 4:42 Board Certified Radiologist. This report was verified electronically.
[2017-09-08 05:01] LABS: BICARBONATE 26.4 MEQ/L (21.0-32.0); POTASSIUM 5.2 MEQ/L (3.5-5.1)
[2017-09-08] MEDS: METHOCARBAMOL 500 MG TAB PO SCH ×3 (05:54→20:15)
[2017-09-08] MEDS: LEVOTHYROXINE SODIUM 50 MCG TAB PO SCH (05:54)
--- NOTE | 2017-09-08 07:16 | MR ---
cc: PARISH LARSEN MD DATE 09/07/2017 PREOPERATIVE DIAGNOSIS Right hemothorax POSTOPERATIVE DIAGNOSIS Right hemothorax PROCEDURE Right chest tube placement. SURGEON Parish Larsen MD ANESTHESIA 1% Xylocaine ESTIMATED BLOOD LOSS Minimal PROCEDURE The patient was prepped and draped in the usual fashion. The area infiltrated with 1% Xylocaine. Incision made in the midaxillary line at the sixth intercostal space, deepened down to the level of the ribs. The chest entered with a hemostat bluntly and then 20-Niuean chest tube placed. The patient tolerated the procedure well. Parihs LUCERO/DJL /2:11 PM /7:06 AM
[2017-09-08] MEDS: KETOROLAC TROMETHAMINE 30 MG/ML (IVP) VIAL IVP PRN ×2 (08:32→17:38)
[2017-09-08] MEDS: POLYETHYLENE GLYCOL 17 GM PKG PO SCH (08:36)
[2017-09-08] MEDS: LACTULOSE SYRUP 20 GM/30 ML CUP PO SCH (08:38)
[2017-09-08] MEDS: DOCUSATE SODIUM 50 MG/SENNA 8.6 MG TAB PO SCH ×2 (08:39→20:16)
[2017-09-08] MEDS: FAMOTIDINE 20 MG TAB PO SCH ×2 (08:39→20:16)
[2017-09-08] MEDS: LIDOCAINE HCL 5% PATCH T-DERMAL SCH (08:40)
[2017-09-08] MEDS: RESP: ALBUTEROL 2.5 MG/IPRATROPIUM 0.5 MG NEB (SCH) NEB ×4 (10:11→20:00)
[2017-09-08] MEDS ORDERED: LIDOCAINE HCL 1% 50 ML VIAL INFIL ONE (10:30)
--- NOTE | 2017-09-08 16:21 | HHI.CCPN ---
Subjective Brief History The patient is an 86-year-old male who presents initially to the emergency department status post fall. The patient came to [place], was evaluated, noted to have fallen, hitting his right back and right arm. He states he did not get dizzy or have any loss of consciousness but slipped and fell by the bathtub. He was hemodynamically stable otherwise, further workup including CT scans showing right 7 through 11 rib fractures and right spinous process fractures. He was transferred to [place] for further evaluation and management. Patient now admitted to ICU trauma service for further care Final injuries Right pulmonary contusion 7 through 11th right serial rib fracture Extensive medical history of lung carcinoma and patient underwent frontal glossectomy in the recent past 24 Hour Review/Hospital Course Patient's been stable overnight He is awake alert and oriented Pain is under control with appropriate pain management protocols Bilateral breath sounds decreased over the right side due to splinting Tender over the right chest in face of serial rib fractures 09/06/17 Patient doing better today Awake alert and oriented and not confused despite the age and medications Improved the breathing over the both lung [place] but decreased breath sounds on the right Chest x-ray reveals some haziness on the right side emboli repeat the CT scan to make sure the patient doesn't have a large developing effusion i.e. hemothorax which would not be surprising Pain management had to be adjusted somewhat for patient is not reacting to morphine well Plan Transferred to floor CT of the chest and if there is a large effusion patient will need a drained with a chest tube and if not then he may be able to go home tomorrow Aggressive physical therapy 09/07/17 Patient is awake alert and oriented and pain is now controlled very well with fentanyl patch and by mouth medication CT of the chest revealed small to moderate sized right hemothorax yesterday and today's chest x-ray reveals more density in the right side. Combined with decreasing hemoglobin the more prominent density of the right chest is consistent with an enlarging hemothorax In a patient of this size this wouldn't be unusual and is commonly venous bleeding of intercostal vessels Will place small chest tube at the bedside 09/08/17 Patient doing well Since chest tube placement draining about 200 cc of her bloody material Will probably pullback chest tube some either tonight or tomorrow Good bilateral breath sounds patient is taking deep breaths Ready to transfer to floor at this time Objective Vital Signs Date Time Temp Pulse Resp B/P (MAP) Pulse Ox O2 Delivery O2 Flow Rate FiO2 09/08/17 14:00 84 09/08/17 12:00 97.6 22 152/78 (102) 92 09/08/17 07:00 Room Air 09/07/17 09:21 2.00 Intake and Output 09/08/17 09/08/17 09/09/17 08:00 16:00 00:00 Output Total 700 ml Balance -700 ml Result Diagram: 09/08/1741109/08/17411 Imaging Last 24 hours Impressions Chest X-Ray 09/08/17599 Signed Impressions: Service Date/Time: Friday, September 08, 2017 04:00 - CONCLUSION: 1. Bibasilar atelectasis 2. 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 Awake alert oriented Hemodynamic/Cardiac Hemodynamically stable Pulmonary/Respiratory Bilateral good breath sounds abdomen soft Renal/I&O Preserved renal function but sodium is starting to inch down 128 mEq per liter Will place patient on normal saline which is 156 mEq per liter to bring the sodium somewhat up Patient's were elderly in distress and with multiple medical problems 10 to develop neurologic deficits with even moderate modulation's of sodium especially hyponatremia Hyponatremia patient's at twice the mortality in the hospital from the patient' s 1 normal natremia make no matter what the reason they're admitted for Assessment and Plan Attestation Critical care time 35 minutes Parish Cheema MD Sep 08, 2017 16:21
[2017-09-08] MEDS: SODIUM CHLOR 0.9% 1000 ML INJ 1,000 ML IV SCH (18:45)
[2017-09-08] MEDS: REMOVE OLD LIDOCAINE PATCH T-DERMAL SCH (21:00)
[2017-09-09] VITALS (12 sets, daily range): BP systolic 118–164; BP diastolic 64–95; PULSE 74–94; RESP 15–25; TEMP 97–97.9; O2SAT 93–100
[2017-09-09] MEDS: HEPARIN SODIUM - SQ 10,000 UNITS/ML VIAL SQ SCH ×3 (01:11→16:02)
--- NOTE | 2017-09-09 03:28 | RADRPT ---
EXAM DATE/TIME: 09/09/2017 02:36 [facility] COMPARISON: CHEST SINGLE AP, September 08, 2017, 4:00. INDICATIONS : Chest tube placement. Pneumothorax. MEDICAL HISTORY : None. SURGICAL HISTORY : None. ENCOUNTER: Initial ACUITY: 1 day PAIN SCORE: 7/10 LOCATION: Bilateral chest FINDINGS: The cardiac silhouette is enlarged in transverse diameter. There is patchy alveolar disease on the ri ght compatible with edema or pneumonia. A right chest tube is in place. There is no evidence of pneum othorax. CONCLUSION: 1. There is no evidence of pneumothorax. Devonte Rosenberg MD on September 09, 2017 at 3:26 Board Certified Radiologist. This report was verified electronically.
[2017-09-09] MEDS: MORPHINE SULFATE 8 MG/ML INJ IV PUSH PRN ×2 (03:42→22:26)
[2017-09-09] MEDS: KETOROLAC TROMETHAMINE 30 MG/ML (IVP) VIAL IVP PRN ×4 (03:43→21:12)
[2017-09-09] MEDS: CHLORHEXIDINE GLUCONATE 2 % 1 PACK (2 CLOTHS) TOP SCH (03:52)
[2017-09-09] MEDS: LEVOTHYROXINE SODIUM 50 MCG TAB PO SCH (05:47)
[2017-09-09] MEDS: METHOCARBAMOL 500 MG TAB PO SCH ×3 (05:47→21:06)
[2017-09-09 05:51] LABS: MAGNESIUM 2.5 MG/DL (1.5-2.5)
[2017-09-09 05:55] LABS: AUTOMATED NEUTROPHIL # 3.9 TH/MM3 (1.8-7.7); BASOPHIL % 0.3 % (0.0-2.0); EOSINOPHIL # 0.3 TH/MM3 (0-0.4); EOSINOPHIL % 6.1 % (0.0-4.0); HEMATOCRIT 29.2 % (39.0-51.0); HEMO FLAGS DIFF FINAL; LYMPH % 4.3 % (9.0-44.0); LYMPHOCYTE # 0.2 TH/MM3 (1.0-4.8); MEAN CELL VOLUME 94.1 FL (80.0-100.0); MEAN CORPUSCULAR HEMOGLOBIN 32.7 PG (27.0-34.0); MEAN CORPUSCULAR HGB CONC 34.8 % (32.0-36.0); NEUT % 79.3 % (16.0-70.0); PLATELET COUNT 199 TH/MM3 (150-450); RED CELL DISTRIBUTION WIDTH 13.4 % (11.6-17.2); WHITE BLOOD COUNT 4.9 TH/MM3 (4.0-11.0)
[2017-09-09] MEDS: LACTULOSE SYRUP 20 GM/30 ML CUP PO SCH (08:36)
[2017-09-09] MEDS: DOCUSATE SODIUM 50 MG/SENNA 8.6 MG TAB PO SCH ×2 (08:36→21:06)
[2017-09-09] MEDS: FAMOTIDINE 20 MG TAB PO SCH ×2 (08:36→21:06)
[2017-09-09] MEDS: LIDOCAINE HCL 5% PATCH T-DERMAL SCH (08:37)
[2017-09-09] MEDS: ACETAMINOPHEN/HYDROcodone 325 MG/5 MG TAB PO PRN ×3 (08:37→21:12)
[2017-09-09] MEDS: POLYETHYLENE GLYCOL 17 GM PKG PO SCH (08:37)
[2017-09-09] MEDS: SODIUM CHLOR 0.9% 1000 ML INJ 1,000 ML IV SCH ×2 (09:00→21:06)
[2017-09-09] MEDS ORDERED: BISACODYL 10 MG SUPP RECTAL ONE (09:15)
[2017-09-09] MEDS ORDERED: REMOVE OLD DURAGESIC (FENTANYL) PATCH T-DERMAL SCH (11:00)
[2017-09-09] MEDS: SODIUM CHLORIDE 1 GRAM TAB PO SCH (11:34)
[2017-09-09] MEDS: fentaNYL 25 MCG/HR PATCH T-DERMAL SCH (11:35)
--- NOTE | 2017-09-09 13:19 | HHI.CCPN ---
Subjective Brief History The patient is an 86-year-old male who presents initially to the emergency department status post fall. The patient came to [place], was evaluated, noted to have fallen, hitting his right back and right arm. He states he did not get dizzy or have any loss of consciousness but slipped and fell by the bathtub. He was hemodynamically stable otherwise, further workup including CT scans showing right 7 through 11 rib fractures and right spinous process fractures. He was transferred to [place] for further evaluation and management. Patient now admitted to ICU trauma service for further care Final injuries Right pulmonary contusion 7 through 11th right serial rib fracture Extensive medical history of lung carcinoma and patient underwent frontal glossectomy in the recent past 24 Hour Review/Hospital Course Patient's been stable overnight He is awake alert and oriented Pain is under control with appropriate pain management protocols Bilateral breath sounds decreased over the right side due to splinting Tender over the right chest in face of serial rib fractures 09/06/17 Patient doing better today Awake alert and oriented and not confused despite the age and medications Improved the breathing over the both lung [place] but decreased breath sounds on the right Chest x-ray reveals some haziness on the right side emboli repeat the CT scan to make sure the patient doesn't have a large developing effusion i.e. hemothorax which would not be surprising Pain management had to be adjusted somewhat for patient is not reacting to morphine well Plan Transferred to floor CT of the chest and if there is a large effusion patient will need a drained with a chest tube and if not then he may be able to go home tomorrow Aggressive physical therapy 09/07/17 Patient is awake alert and oriented and pain is now controlled very well with fentanyl patch and by mouth medication CT of the chest revealed small to moderate sized right hemothorax yesterday and today's chest x-ray reveals more density in the right side. Combined with decreasing hemoglobin the more prominent density of the right chest is consistent with an enlarging hemothorax In a patient of this size this wouldn't be unusual and is commonly venous bleeding of intercostal vessels Will place small chest tube at the bedside 09/08/17 Patient doing well Since chest tube placement draining about 200 cc of her bloody material Will probably pullback chest tube some either tonight or tomorrow Good bilateral breath sounds patient is taking deep breaths Ready to transfer to floor at this time 09/09/17 Patient doing really well at this time Bilateral good breath sounds Tolerating his diet well Patient developed. 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 and will require extensive physical and occupational therapy to recuperate Objective Vital Signs Date Time Temp Pulse Resp B/P (MAP) Pulse Ox O2 Delivery O2 Flow Rate FiO2 09/09/17 06:00 78 09/09/17 04:43 15 09/09/17 04:00 97.9 143/79 (100) 93 09/08/17 20:00 Room Air 09/07/17 09:21 2.00 Intake and Output 09/09/17 09/09/17 09/10/17 08:00 16:00 00:00 Intake Total 500 ml Output Total 1250 ml Balance -750 ml Result Diagram: 09/09/17 0413 09/09/17 0413 Imaging Last 24 hours Impressions Chest X-Ray 09/09/17 0000 Signed Impressions: Service Date/Time: Saturday, September 09, 2017 02:36 - CONCLUSION: 1. There is no evidence of pneumothorax. Devonte Rosenberg MD Exam RN UTILIZATION MANAGEMENT UM Awake alert oriented Hemodynamic/Cardiac Hemodynamically stable Pulmonary/Respiratory Bilateral good breath sounds Abdomen/GI Nutrition Abdomen soft active bowel sounds Renal/I&O Good renal function with slightly increased BUN and creatinine Hyponatremia will place patient on some salt supplements Hematologic Critical care time 35 minutes Parish Cheema MD Sep 09, 2017 13:19
[2017-09-09] MEDS ORDERED: FUROSEMIDE 20 MG/2 ML VIAL IV PUSH ONE (13:30)
[2017-09-09] MEDS ORDERED: COMB0.2S EACH EYE (14:53)
[2017-09-09] MEDS: REMOVE OLD LIDOCAINE PATCH T-DERMAL SCH (21:10)
[2017-09-10] VITALS (8 sets, daily range): BP systolic 104–154; BP diastolic 59–81; PULSE 80–110; RESP 10–24; TEMP 97.3–99.7; O2SAT 92–99
[2017-09-10] MEDS: CHLORHEXIDINE GLUCONATE 2 % 1 PACK (2 CLOTHS) TOP SCH (00:03)
[2017-09-10] MEDS: HEPARIN SODIUM - SQ 10,000 UNITS/ML VIAL SQ SCH ×3 (00:46→17:31)
[2017-09-10 03:48] LABS: AUTOMATED NEUTROPHIL # 7.6 TH/MM3 (1.8-7.7); BASOPHIL % 0.3 % (0.0-2.0); EOSINOPHIL # 0.2 TH/MM3 (0-0.4); HEMATOCRIT 30.1 % (39.0-51.0); HEMO FLAGS DIFF FINAL; LYMPH % 1.8 % (9.0-44.0); LYMPHOCYTE # 0.2 TH/MM3 (1.0-4.8); MEAN CELL VOLUME 94.6 FL (80.0-100.0); MEAN CORPUSCULAR HGB CONC 34.9 % (32.0-36.0); MONO % 7.7 % (0.0-8.0); NEUT % 88.2 % (16.0-70.0); PLATELET COUNT 211 TH/MM3 (150-450); RED BLOOD COUNT 3.19 MIL/MM3 (4.50-5.90); RED CELL DISTRIBUTION WIDTH 13.3 % (11.6-17.2); WHITE BLOOD COUNT 8.6 TH/MM3 (4.0-11.0)
[2017-09-10 04:21] LABS: BICARBONATE 24.6 MEQ/L (21.0-32.0); POTASSIUM 5.3 MEQ/L (3.5-5.1)
--- NOTE | 2017-09-10 04:30 | RADRPT ---
EXAM DATE/TIME: 09/10/2017 03:19 [facility] COMPARISON: CHEST SINGLE AP, September 09, 2017, 2:36. INDICATIONS : Follow up from trauma. Respiratory status. MEDICAL HISTORY : cancer of the tongue SURGICAL HISTORY : orapharageal for cancer ENCOUNTER: Subsequent ACUITY: 4 - 6 days PAIN SCORE: Non-responsive. LOCATION: Bilateral chest FINDINGS: The cardiac silhouette is enlarged in transverse diameter. A right chest tube is in place. There is n o evidence of pneumothorax. Chest tube has migrated proximally with the sidehole at the level of the chest wall. There is patchy alveolar disease bilaterally compatible with edema or pneumonia. CONCLUSION: 1. There is no evidence of pneumothorax. 2. The chest tube has migrated proximally as above. Devonte Rosenberg MD on September 10, 2017 at 4:28 Board Certified Radiologist. This report was verified electronically.
[2017-09-10] MEDS: ACETAMINOPHEN/HYDROcodone 325 MG/5 MG TAB PO PRN ×3 (05:35→18:49)
[2017-09-10] MEDS: LEVOTHYROXINE SODIUM 50 MCG TAB PO SCH (05:35)
[2017-09-10] MEDS: METHOCARBAMOL 500 MG TAB PO SCH ×2 (05:35→13:51)
[2017-09-10] MEDS: MORPHINE SULFATE 8 MG/ML INJ IV PUSH PRN ×3 (05:36→18:49)
[2017-09-10] MEDS: POLYETHYLENE GLYCOL 17 GM PKG PO SCH (08:43)
[2017-09-10] MEDS: LACTULOSE SYRUP 20 GM/30 ML CUP PO SCH (08:43)
[2017-09-10] MEDS: SODIUM CHLORIDE 1 GRAM TAB PO SCH (08:43)
[2017-09-10] MEDS: FAMOTIDINE 20 MG TAB PO SCH ×2 (08:43→19:47)
[2017-09-10] MEDS: DOCUSATE SODIUM 50 MG/SENNA 8.6 MG TAB PO SCH ×2 (08:43→19:47)
[2017-09-10] MEDS: LIDOCAINE HCL 5% PATCH T-DERMAL SCH (08:44)
[2017-09-10] MEDS ORDERED: BISACODYL 10 MG SUPP RECTAL ONE (08:45)
--- NOTE | 2017-09-10 10:27 | HHI.CCPN ---
Subjective Brief History The patient is an 86-year-old male who presents initially to the emergency department status post fall. The patient came to [facility], was evaluated, noted to have fallen, hitting his right back and right arm. He states he did not get dizzy or have any loss of consciousness but slipped and fell by the bathtub. He was hemodynamically stable otherwise, further workup including CT scans showing right 7 through 11 rib fractures and right spinous process fractures. He was transferred to [place] for further evaluation and management. Patient now admitted to ICU trauma service for further care Final injuries Right pulmonary contusion 7 through 11th right serial rib fracture Extensive medical history of lung carcinoma and patient underwent frontal glossectomy in the recent past 24 Hour Review/Hospital Course Patient's been stable overnight He is awake alert and oriented Pain is under control with appropriate pain management protocols Bilateral breath sounds decreased over the right side due to splinting Tender over the right chest in face of serial rib fractures 09/06/17 Patient doing better today Awake alert and oriented and not confused despite the age and medications Improved the breathing over the both lung lockwood but decreased breath sounds on the right Chest x-ray reveals some haziness on the right side emboli repeat the CT scan to make sure the patient doesn't have a large developing effusion i.e. hemothorax which would not be surprising Pain management had to be adjusted somewhat for patient is not reacting to morphine well Plan Transferred to floor CT of the chest and if there is a large effusion patient will need a drained with a chest tube and if not then he may be able to go home tomorrow Aggressive physical therapy 09/07/17 Patient is awake alert and oriented and pain is now controlled very well with fentanyl patch and by mouth medication CT of the chest revealed small to moderate sized right hemothorax yesterday and today's chest x-ray reveals more density in the right side. Combined with decreasing hemoglobin the more prominent density of the right chest is consistent with an enlarging hemothorax In a patient of this size this wouldn't be unusual and is commonly venous bleeding of intercostal vessels Will place small chest tube at the bedside 09/08/17 Patient doing well Since chest tube placement draining about 200 cc of her bloody material Will probably pullback chest tube some either tonight or tomorrow Good bilateral breath sounds patient is taking deep breaths Ready to transfer to floor at this time 09/09/17 Patient doing really well at this time Bilateral good breath sounds Tolerating his diet well Patient developed. 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 and will require extensive physical and occupational therapy to recuperate 09/10/17 Patient doing much better today Is awake alert oriented no difficulty breathing Chest tube has been pulled back yesterday by me but apparently and moving of the patient this came even further out as the dressing was being changed I guess , and at this point there is no point in keeping the chest tube There is still small chance that right pleural effusion might reaccumulate but with chest tube in this position and no choice but to remove it Bilateral good breath sounds Hemodynamically stable Patient can transfer to floor today and probably will be discharged Monday Will require aggressive physical therapy and I will see him walk and function okay before the discharge for the is not uncommon to see patient's at this age group functional decline after they return home and finally end up in bed Objective Vital Signs Date Time Temp Pulse Resp B/P (MAP) Pulse Ox O2 Delivery O2 Flow Rate FiO2 09/10/17 08:50 18 09/10/17 08:00 97 09/10/17 08:00 99.7 128/81 (97) 92 09/09/17 19:00 Room Air 09/07/17 09:21 2.00 Intake and Output 09/10/17 09/10/17 09/11/17 08:00 16:00 00:00 Intake Total 1147 ml Output Total 670 ml Balance 477 ml Result Diagram: 09/10/1731809/10/17318 Imaging Last 24 hours Impressions Chest X-Ray 09/10/17 0600 Signed Impressions: Service Date/Time: Sunday, September 10, 2017 03:19 - CONCLUSION: 1. There is no evidence of pneumothorax. 2. The chest tube has migrated proximally as above. Devonte Rosenberg MD Exam [employer] Awake alert oriented Hemodynamic/Cardiac Hemodynamically stable Pulmonary/Respiratory Bilateral good breath sounds Right chest tube to be removed today Abdomen/GI Nutrition Abdomen soft diet as tolerated Renal/I&O Good renal function with slight increase of BUN and creatinine but this is a some degree of pre-existing is a ischemia and renal insufficiency Assessment and Plan Attestation Critical care time 35 minutes Parish Cheema MD Sep 10, 2017 10:27
[2017-09-10] MEDS: SODIUM CHLOR 0.9% 1000 ML INJ 1,000 ML IV SCH (11:43)
[2017-09-10] MEDS: REMOVE OLD LIDOCAINE PATCH T-DERMAL SCH ×2 (19:47→20:31)
[2017-09-11] MEDS: METHOCARBAMOL 500 MG TAB PO SCH ×2 (00:05→05:51)
[2017-09-11] MEDS: ACETAMINOPHEN/HYDROcodone 325 MG/5 MG TAB PO PRN ×2 (00:08→05:52)
[2017-09-11] MEDS: HEPARIN SODIUM - SQ 10,000 UNITS/ML VIAL SQ SCH ×2 (00:09→09:38)
[2017-09-11 00:18] VITALS: BP 131/62; PULSE 93; RESP 16; TEMP 96.6; O2SAT 97
[2017-09-11] MEDS: CHLORHEXIDINE GLUCONATE 2 % 1 PACK (2 CLOTHS) TOP SCH (04:00)
[2017-09-11 04:34] VITALS: BP 132/73; PULSE 92; RESP 16; TEMP 96.9; O2SAT 97
[2017-09-11 05:02] LABS: AUTOMATED NEUTROPHIL # 9.7 TH/MM3 (1.8-7.7); BASOPHIL % 0.3 % (0.0-2.0); EOSINOPHIL # 0.1 TH/MM3 (0-0.4); EOSINOPHIL % 0.5 % (0.0-4.0); HEMO FLAGS DIFF FINAL; LYMPH % 1.4 % (9.0-44.0); LYMPHOCYTE # 0.1 TH/MM3 (1.0-4.8); MEAN CORPUSCULAR HEMOGLOBIN 32.3 PG (27.0-34.0); MEAN CORPUSCULAR HGB CONC 34.4 % (32.0-36.0); MONO % 5.8 % (0.0-8.0); PLATELET COUNT 242 TH/MM3 (150-450); RED BLOOD COUNT 3.19 MIL/MM3 (4.50-5.90); RED CELL DISTRIBUTION WIDTH 13.7 % (11.6-17.2); WHITE BLOOD COUNT 10.6 TH/MM3 (4.0-11.0)
[2017-09-11 05:22] LABS: POTASSIUM 5.3 MEQ/L (3.5-5.1)
[2017-09-11] MEDS: LEVOTHYROXINE SODIUM 50 MCG TAB PO SCH (05:51)
--- NOTE | 2017-09-11 07:09 | RADRPT ---
EXAM DATE/TIME: 09/11/2017 05:22 [facility] COMPARISON: CHEST SINGLE AP, September 10, 2017, 3:19. INDICATIONS : Folow up from trauma, evaluate rib and transverse process fractures, short of breath, chest and back pain MEDICAL HISTORY : tongue cancer SURGICAL HISTORY : unobtainable ENCOUNTER: Subsequent ACUITY: 1 week PAIN SCORE: Non-responsive. LOCATION: Bilateral chest FINDINGS: Ovoid opacity has developed in the right midlung characteristic of fluid within the interlobar fissur e. There is diffuse vascular engorgement in the right lung. Mild air space disease is seen medially i n the right base. Right chest tube has been removed. Left lung remains clear Heart and mediastinal structures are stable. Right-sided rib fractures again noted. CONCLUSION: 1. Fluid accumulation within the interlobar fissure of the right lung. 2. Mild right basilar airspace disease. 3. No evidence of pneumothorax status post right chest tube removal. Jose Rodriguez MD on September 11, 2017 at 7:04 Board Certified Radiologist. This report was verified electronically.
[2017-09-11 08:00] VITALS: BP 121/66; PULSE 93; RESP 17; TEMP 97.6; O2SAT 95
[2017-09-11] MEDS ORDERED: PERI PO (08:14)
[2017-09-11] MEDS: SODIUM CHLORIDE 1 GRAM TAB PO SCH (09:37)
[2017-09-11] MEDS: DOCUSATE SODIUM 50 MG/SENNA 8.6 MG TAB PO SCH (09:37)
[2017-09-11] MEDS: POLYETHYLENE GLYCOL 17 GM PKG PO SCH (09:37)
[2017-09-11] MEDS: FAMOTIDINE 20 MG TAB PO SCH (09:37)
[2017-09-11] MEDS: LACTULOSE SYRUP 20 GM/30 ML CUP PO SCH (09:38)
[2017-09-11] MEDS: LIDOCAINE HCL 5% PATCH T-DERMAL SCH (09:47)
[2017-09-11] MEDS ORDERED: WALKER WHEELS/F1 MIS (11:16)
[2017-09-11] MEDS ORDERED: HYDR-3516 PO (11:18)
[2017-09-11] MEDS ORDERED: LIDO1ADH4 T-DERMAL (11:18)
[2017-09-11] MEDS ORDERED: METH500T3 PO (11:18)
--- NOTE | 2017-09-11 11:27 | HHI.DS ---
Discharge Summary Admission Date Sep 04, 2017 at 21:47 Discharge Date: Sep 11, 2017 Admitting Diagnosis multiple rib fractures, multiple transverse process fractures (1) Fracture of transverse process of thoracic vertebra ICD Codes: S22.009A - Unspecified fracture of unspecified thoracic vertebra, initial encounter for closed fracture Diagnosis: Principal Status: Acute (2) Multiple rib fractures involving four or more ribs ICD Codes: S22.49XA - Multiple fractures of ribs, unspecified side, initial encounter for closed fracture Diagnosis: Principal Status: Acute Brief History Fall. CBC/BMP: 09/11/17 0449 09/11/17 0449 Significant Findings Laboratory Tests Test 09/09/17 04:13 09/10/17 03:19 09/11/17 04:49 Red Blood Count 3.10 MIL/MM3 (4.50-5.90) 3.19 MIL/MM3 (4.50-5.90) 3.19 MIL/MM3 (4.50-5.90) Hemoglobin 10.1 GM/DL (13.0-17.0) 10.5 GM/DL (13.0-17.0) 10.3 GM/DL (13.0-17.0) Hematocrit 29.2 % (39.0-51.0) 30.1 % (39.0-51.0) 30.0 % (39.0-51.0) Neutrophils (%) (Auto) 79.3 % (16.0-70.0) 88.2 % (16.0-70.0) 92.0 % (16.0-70.0) Lymphocytes (%) (Auto) 4.3 % (9.0-44.0) 1.8 % (9.0-44.0) 1.4 % (9.0-44.0) Monocytes (%) (Auto) 10.0 % (0.0-8.0) Eosinophils (%) (Auto) 6.1 % (0.0-4.0) Lymphocytes # (Auto) 0.2 TH/MM3 (1.0-4.8) 0.2 TH/MM3 (1.0-4.8) 0.1 TH/MM3 (1.0-4.8) Blood Urea Nitrogen 27 MG/DL (7-18) 29 MG/DL (7-18) 42 MG/DL (7-18) Creatinine 1.43 MG/DL (0.60-1.30) 1.48 MG/DL (0.60-1.30) 1.76 MG/DL (0.60-1.30) Calcium Level 8.0 MG/DL (8.5-10.1) 7.7 MG/DL (8.5-10.1) 7.8 MG/DL (8.5-10.1) Sodium Level 128 MEQ/L (136-145) 129 MEQ/L (136-145) 131 MEQ/L (136-145) Chloride Level 96 MEQ/L (98-107) Estimat Glomerular Filtration Rate 47 ML/MIN (>89) 45 ML/MIN (>89) 37 ML/MIN (>89) Potassium Level 5.3 MEQ/L (3.5-5.1) 5.3 MEQ/L (3.5-5.1) Mean Platelet Volume 6.9 FL (7.0-11.0) Neutrophils # (Auto) 9.7 TH/MM3 (1.8-7.7) Imaging Last Impressions Chest X-Ray 09/11/17 0600 Signed Impressions: Service Date/Time: Monday, September 11, 2017 05:22 - CONCLUSION: 1. Fluid accumulation within the interlobar fissure of the right lung. 2. Mild right basilar airspace disease. 3. No evidence of pneumothorax status post right chest tube removal. Jose Rodriguez MD Chest CT 09/06/17 0000 Signed Impressions: Service Date/Time: Wednesday, September 06, 2017 15:37 - CONCLUSION: Small pleural effusion on the right occupying less than one quarter right hemithorax with minimal peripheral changes right base. There is mild progression from 09/04/17. Marked coronary calcifications. George Gray MD FACR PE at Discharge GENERAL: This is a 86-year-old male lying in bed. No distress noted. SKIN: Warm and dry. HEAD: Atraumatic. Normocephalic. EYES: PERRLA ENT: No nasal bleeding or discharge. Mucous membranes pink and moist. NECK: SEED POTATO ARRANGER - capped. Trachea midline. No JVD. CARDIOVASCULAR: Regular rate and rhythm. RESPIRATORY: RA. No accessory muscle use. Lungs are clear to auscultation. Breath sounds equal bilaterally. No distress or dyspnea. GASTROINTESTINAL: BS + x 4 quads. Abdomen soft, non-tender, nondistended. MUSCULOSKELETAL: Extremities without cyanosis, or edema. + peripheral pulses x 4 extremities. Warm with good capillary refill and sensation. MAEW. NEUROLOGICAL: Awake and alert. Patient does not speak. Writes on tablet. Hospital Course TAKOTNA: This is an 86-year-old male who fell in the bathtub landing on his right back. INJURIES: RIGHT rib fxs (05-09) RIGHT pulmonary contusion T11-T12 transverse process fx (right) PMHx: Oropharyngeal cancer, throat cancer, Glossectomy. Radiation and chemo treatment. Hypothyroid. Procedures: 09/07: RIGHT CT placement (REANNA) 09/10: CT removed Diet: Full liquid - Enlive (No tongue) ST. Pulm: IS, acapella, EZ pap, duonebs Pain: Tripp 5-10 mg q 4h. Morphine 4 mg q 3h. Fentanyl 25 mcg patch. Robaxin 500 mg q 8h. Lidoderm patch. Activity: OOB. PT ordered. GI: Pepcid 10 mg BID Bowel: Lissy-colace BID. Miralax. Lactulose. LBM: 09/11 DVT: SCD's, Heparin 5000 units q 8H The patient is now tolerating a po liquid diet. Eating and drinking well. Pain is being managed well with PO pain medications, and patient is being a provided with a script for pain meds upon discharge. (NO driving while taking narcotic pain medication enforced to patient.) Pt is having regular bowel movements, and have recommended to patient to continue with stool softeners while taking narcotic pain medications to prevent constipation. Pt has been participating in PT and OT while admitted at [facility] and has been ambulating with their assistance and independently . Home health care PT recommended and arranged. All follow up appointments have been provided and discussed with the patient. It is recommended that the patient keeps all his follow up appointments for continued recovery. No flying is strictly enforced to patient along with his son and visitors in room. Patient's condition and plan of care discussed with collaborating trauma surgeon. He is agreeable to plan for discharge today. Therefore, the patient is stable to be safely discharged home from a trauma surgery standpoint. Thank you for allowing us to participate in his care. We wish Holger the best in his recovery. RIGHT rib fxs (7-11) RIGHT pulmonary contusion Supportive care O2 as needed Aggressive pulmonary toileting Pain management PT ordered [facility] out of bed Chest x-rays as needed T11-T12 transverse process fx (right) Supportive care Pain management PT and OT ordered [facility] out of bed Pt Condition on Discharge: Stable Discharge Disposition: Disch w/ Home Health Serv Discharge Instructions DIET: Follow Instructions for: Full Liquid Diet Activities you can perform: Regular-No Restrictions Activities to Avoid: Driving for 24 hrs, Concussion Sports, Contact Sports, Lifting/Bending, Prolonged Standing, Driving Other Activity Instructions: No driving while taking narcotic pain medications No flying for 3 months Moriah Garcia Sep 11, 2017 11:27
[2017-09-11 12:00] VITALS: BP 122/60; PULSE 89; RESP 17; TEMP 98.5; O2SAT 93
[2017-09-11] MEDS ORDERED: COMMODE BEDSIDE1 MI1 (12:17)
== END 2017-09-11 13:34 | disposition home health service (06) | DRG 183 ==
LOC: PHED 18:09 → PHEDA 21:47 → N03B 09-05 00:16 → N06A 09-10 20:15
PROVIDERS: ADMIT Surgery; ATTEND Surgery
PROC: 0W9930Z Drainage of Right Pleural Cavity with Drainage Device, Percutaneous Approach (ICD-10-PCS; principal; 2017-09-07)
DX: S22.41XA Multiple fractures of ribs, right side, initial encounter for closed fracture (principal); S27.1XXA Traumatic hemothorax, initial encounter; S22.089A Unspecified fracture of T11-T12 vertebra, initial encounter for closed fracture; R06.03 Acute respiratory distress; Z93.0 Tracheostomy status; S27.321A Contusion of lung, unilateral, initial encounter; E87.1 Hypo-osmolality and hyponatremia; R54 Age-related physical debility; E03.9 Hypothyroidism, unspecified; I10 Essential (primary) hypertension; W18.2XXA Fall in (into) shower or empty bathtub, initial encounter; Z85.818 Personal history of malignant neoplasm of other sites of lip, oral cavity, and pharynx; Y93.E1 Activity, personal bathing and showering; Z85.118 Personal history of other malignant neoplasm of bronchus and lung; Z87.891 Personal history of nicotine dependence; Z92.21 Personal history of antineoplastic chemotherapy; Z92.3 Personal history of irradiation
CPT/HCPCS: 71010; 71250; 80048; 80053; 83735; 84100; 85025; 87641; 90471; 90714; 94640; 94664; 94667; 96372; 96374; 96375; C9113; J1644; J1885; J1940; J2270; J2405; J2550; J3480; J7030; J7040